=== PATIENT | female | born 2000 | race Hispanic/Latino ===

== ENCOUNTER 2025-03-07 11:48 | Emergency (ER) | payer BC, OTHER ==
[~2025-03-07] VITALS: Ht 142.2 cm; Wt 59.0 kg
[~2025-03-07 11:48] MED LIST: TYLENOL 3 PO
[2025-03-07 12:04] VITALS: PULSE 74; RESP 18; TEMP 98.2; O2SAT 100
[2025-03-07] MEDS ORDERED: ONDANSETRON ODT4 MG PO (13:17)
[2025-03-07] MEDS ORDERED: MECLIZINE HCL25 MG PO (13:17)
[2025-03-07 13:37] VITALS: BP 120/76
== END 2025-03-07 13:35 | disposition home or self-care (01) ==
LOC: ER 12:47
DX: R42 Dizziness and giddiness (principal); R11.2 Nausea with vomiting, unspecified; H92.01 Otalgia, right ear; R51.9 Headache, unspecified
CPT/HCPCS: 99283